=== PATIENT | female | born 1995 | race Caucasian/White ===

== ENCOUNTER 2024-01-30 21:00 | Emergency (ER) | payer OTHER ==
[2024-01-30 21:17] VITALS: O2SAT 98
[2024-01-30 21:42] LABS: BILIRUBIN,URINE NEGATIVE (NEGATIVE); GLUCOSE, URINE (UA) NEGATIVE (NEGATIVE); KETONES,URINE (UA) NEGATIVE (NEGATIVE); LEUKOCYTE ESTERASE, URINE NEGATIVE (NEGATIVE); NITRITE,URINE NEGATIVE (NEGATIVE); OCCULT BLOOD,URINE NEGATIVE (NEGATIVE); PROTEIN,URINE NEGATIVE (NEGATIVE); UROBILINOGEN,URINE 0.2 (NORMAL) E.U./dL (NORMAL)
[2024-01-30 21:43] LABS: CLARITY,URINE CLEAR (CLEAR)
[2024-01-30 22:09] LABS: BASOPHILS % (AUTO) 0.2 %; EOSINOPHILS # (AUTO) 0.2 10^3/uL (0.0-0.7); EOSINOPHILS % (AUTO) 1.3 %; HCT - HEMATOCRIT 37.5 % (37.0-47.0); HGB - HEMOGLOBIN 12.9 g/dL (12.0-16.0); LYMPHOCYTES # (AUTO) 3.4 10^3/uL (1.5-3.5); LYMPHOCYTES % (AUTO) 27.4 %; MEAN CORPUSCULAR HEMOGLOBIN 30.9 pg (27.0-31.0); MEAN CORPUSCULAR HGB CONC 34.4 g/dL (32.0-36.0); MEAN CORPUSCULAR VOLUME 89.7 fL (81.0-99.0); MEAN PLATELET VOLUME 9.4 fL (7.9-10.8); MONOCYTES # (AUTO) 1.1 10^3/uL (0.0-1.0); MONOCYTES % (AUTO) 8.9 %; NEUTROPHILS # (AUTO) 7.6 10^3/uL (1.5-6.6); NEUTROPHILS % (AUTO) 61.9 %; PLT - PLATELET COUNT 282 10^3/uL (130-450); RED BLOOD COUNT 4.18 10^6/uL (4.20-5.40); RED CELL DISTRIBUTION WIDTH 11.9 % (12.0-15.0); WHITE BLOOD COUNT 12.2 x10^3/uL (4.8-10.8)
[2024-01-30 22:25] LABS: ALBUMIN 3.8 g/dL (3.2-5.5); ALBUMIN/GLOBULIN RATIO 1.6 (1.0-2.2); BILIRUBIN,TOTAL 0.3 mg/dL (0.2-1.0); CALCIUM 9.6 mg/dL (8.5-10.3); CREATININE 0.5 mg/dL (0.6-1.3); POTASSIUM 3.5 mmol/L (3.5-4.5); TOTAL PROTEIN 6.2 g/dL (6.4-8.9)
--- NOTE | 2024-01-30 23:01 | ED Physician Documentation ---
PD HPI FEMALE - Stated complaint Stated Complaint: PREG/BLEEDING/CRAMPING - Chief complaint Chief Complaint: Abd Pain - History obtained from History obtained from: Patient - Additional information Additional information: HPI from patient. , approximately 8 weeks , presents for vaginal bleeding. This occurred at approximately 19:00 today while at home urinating. Regarding clots, she noted "tiniest clot" (per patient) within the bleeding. Denies pain but had mild suprapubic cramping earlier this evening. Review of Systems GI: denies: Abdominal Pain, Nausea, Vomiting PD PAST MEDICAL HISTORY - Past Medical History Past Medical History: No - Past Surgical History Past Surgical History: No - Allergies Allergies/Adverse Reactions: Allergies Allergy/AdvReac Type Severity Reaction Status Date / Time No Known Drug Allergies Allergy Verified 01/30/24 21:08 - Social History Does the pt smoke?: No - Immunizations Immunizations are current?: Yes - POLST Patient has POLST: No PD ED PE NORMAL - Vitals Vital signs reviewed: Yes - General General: Alert and oriented X 3, No acute distress, Well developed/nourished - Abdomen Abdomen: Soft, Non tender - Back Back: No CVA TTP Results - Vitals Vitals: Oxygen O2 Source Nasal cannula - Labs Labs: Laboratory Tests 01/30/24 01/30/24 01/30/24 21:24 22:01 22:01 WBC 12.2 H RBC 4.18 L Hgb 12.9 Hct 37.5 MCV 89.7 MCH 30.9 MCHC 34.4 RDW 11.9 L Plt Count 282 MPV 9.4 Neut # (Auto) 7.6 H Lymph # (Auto) 3.4 [place] # (Auto) 1.1 H Eos # (Auto) 0.2 Baso # (Auto) 0.0 Absolute Nucleated RBC 0.00 Nucleated RBC % 0.0 Sodium 135 Potassium 3.5 Chloride 104 Carbon Dioxide 24 Anion Gap 7.0 BUN 11 Creatinine 0.5 L Estimated GFR (MDRD) 149 Glucose 98 Calcium 9.6 Total Bilirubin 0.3 AST 10 ALT 10 Alkaline Phosphatase 39 L Total Protein 6.2 L Albumin 3.8 Globulin 2.4 Albumin/Globulin Ratio 1.6 Beta HCG, Quant 82518.5 Urine Color YELLOW Urine Clarity CLEAR Urine pH 6.0 Ur Specific [place] 1.020 Urine Protein NEGATIVE Urine Glucose (UA) NEGATIVE Urine Ketones NEGATIVE Urine Occult Blood NEGATIVE Urine Nitrite NEGATIVE Urine Bilirubin NEGATIVE Urine Urobilinogen 0.2 (NORMAL) Ur Leukocyte Esterase NEGATIVE Ur Microscopic Review NOT INDICATED Urine Culture Comments NOT INDICATED - Rads (name of study) pelvic US Relevant Findings:: Prelim report reviewed, See rad report PD Medical Decision Making - ED course Complexity details: considered differential, d/w patient ED course: Unremarkable blood tests (minimal leukocytosis, WBC 12.2), normal UA, unremarkable ER abdominal panel. Serum HCG 23006.5. Mostly reassuring pelvic US with single viable IUP [id number]. Two perigestational/subchorionic bleeds noted. Results d/w patient, return precautions reviewed, and recommended follow up with senior ux designer next available appointment. Threatened miscarriage instructions provided. Patient thinks she is rh + but cannot say this with any degree of certainty. We discussed option of undertaking blood typing, and I explained reason would be to consider (likely recommend) rhogam if she is rh negative. She opts to forego this testing at this time and says she will follow up with her senior ux designer. Departure - Departure Disposition: 01 Home, Self Care Clinical Impression: Vaginal bleeding during Condition: Good Instructions: ED Miscarriage Poss Comments: There are no concerning findings on tonight's blood tests. The ultrasound shows a health the fetus with measurements that are compatible with 7 weeks, 5 days of growth. As we discussed, some bleeding is noted adjacent to the gestational sac; these are called "subchorionic hemorrhage". While these are abnormal findings, the significance, particularly regarding prognosis, is unclear. Generally, larger subchorionic hemorrhages correlate with higher risk of the ending in miscarriage. Many patients with vaginal bleeding and/or subchorionic hemorrhage(s) go on to have normal pregnancies. There are no other emergent tests at this time that will aid in prognosis regarding your . However, as we discussed, you should contact your MANAGER BUSINESS MANAGEMENT when their office is next open to arrange for the next available appointment for follow- up/reevaluation. Is also important that you contact your MANAGER BUSINESS MANAGEMENT right away to discuss your blood type. As we discussed, you are indicating that you believe your blood type is a positive Rh. If you are negative Rh, you will need to get a shot of RhoGAM as soon as possible. 1 option is to contact your MANAGER BUSINESS MANAGEMENT tomorrow morning when the office is open, arrange the next available appointment, but asked him to please query your records and then get back to you as to your blood type. If you are Rh+, you do not need RhoGAM. If you are Rh-, ask if they can order the shot or else you can always return to the emergency department for RhoGAM. Forms: PCP List Discharge Date/Time: 01/31/24 00:00
--- NOTE | 2024-01-30 23:27 | Ultrasound Report ---
PROCEDURE: OB 1st Trimester INDICATIONS: vag bleed, + preg OUTSIDE/PRIOR DATING DATA: Last menstrual period (LMP): 12/06/2023. LMP-based estimated date of delivery (ADOLPH): 09/11/2024. First dating scan (date and location): 01/30/2024. Estimated date of delivery (ADOLPH) from first dating scan: 09/12/2024. TECHNIQUE: Real-time scanning was performed of the fetus and maternal pelvic organs, with image documentation. COMPARISON: None. FINDINGS: Intrauterine gestational sac present. Embryo: [place]-rump length of 1.38 cm corresponding to estimated age of 7 weeks, 5 days. Heart rate: 155 bpm. Other: 2 perigestational fluid collections identified. To the right of the gestational sac, there is a subchronic hemorrhage measuring 3.4 x 2.3 x 3.1 cm. To the left of the gestational sac, there is guaman bchorionic hemorrhage measuring 1.8 x 0.8 x 1.4 cm Measurement variability in dating: +/- 4 weeks by LMP, +/- 7 days by mean sac diameter (use before 6 weeks gestation if crown-rump length not able to be measured), +/- 5 days by crown-rump length (6-12 weeks gestation). Maternal organs: Ovaries appear within normal limits.] Corpus luteum cyst. IMPRESSION: Single intrauterine gestation with crown-rump length of 1.38 cm corresponding to estimated age of 7 weeks, 5 days. heart rate detected. Perigestational bleeds are visualized. Preliminary results were reported to ordering ED provider Dr. Gonzales by foreclosure home inspector at time of imagin g completion. Reviewed by: Ines Jordan MD, PhD on 01/30/2024 11:25 PM PDT Approved by: Ines Jordan MD, PhD on 01/30/2024 11:25 PM PDT Station ID: [id number]
[2024-01-30 23:45] VITALS: BP 123/72
== END 2024-01-31 | disposition home or self-care (01) ==
LOC: ED 21:00
DX: O20.9 Hemorrhage in early pregnancy, unspecified (principal); Z3A.01 Less than 8 weeks gestation of pregnancy
CPT/HCPCS: 36415; 80053; 81001; 81003; 84702; 85025; 87086; 99283; 99284